=== PATIENT | male | born 1940 | race Caucasian/White ===

== ENCOUNTER → 2017-05-16 | Outpatient (CLI) | payer MEDICARE, OTHER ==
[~2017-05-16] MED LIST: FLUSAL2505 INH; LATA.005SO BOTHEYES; LEVO750 PO; Revlimid10 MG PO
== END ==
LOC: LAB 12:13 → LAB SHORT 12:13
DX: J47.9 Bronchiectasis, uncomplicated (principal)
CPT/HCPCS: 87070; 87205

== ENCOUNTER → 2017-10-30 | Outpatient (CLI) | payer MEDICARE, OTHER | END | disposition home or self-care (01) | LOC: LAB SHORT 11:34 → LAB 11:34 | DX: J47.9 Bronchiectasis, uncomplicated (principal) | CPT/HCPCS: 87070; 87205 ==

== ENCOUNTER → 2018-04-28 | Outpatient (CLI) | payer MEDICARE, OTHER ==
[~2018-04-28] MED LIST changes: +ASPI81CH PO; +Bactrim Ds Tab1 EACH PO; +ERGO400 PO; +UNITHROID PO
== END | disposition home or self-care (01) ==
LOC: LAB EV 19:03 → LAB SHORT 19:03
DX: R35.0 Frequency of micturition (principal)
CPT/HCPCS: 87086

== ENCOUNTER 2018-05-24 15:06 | Day surgery (SDC) | payer MEDICARE, OTHER ==
--- NOTE | 2018-05-24 20:22 | NUR ---
[id number] CONSENT/ORDERS NOTED AND ON CHART. PT VERBALIZES UNDERSTANDING OF PICC PLACEMENT. 2 ATTEMPTS FOR PLACEMENT, NOT ABLE TO THREAD GUIDEWIRE TO LUE. PT UP TO BRP AND AMBULATING IN HALLWAY, WHILE THIS RN DOWN TO [facility] UNIT TO OBTAIN PICC KIT. NONE AVAILABLE ON 2ND FLOOR. 2ND ATTEMPT DONE, MINIMAL BLOOD LOSS, GREEN SPIKES NOTED ON TLD. TAGADERM DRESSING AND NEW END CAP PLACED, SWAB CAP X1. STERILE TECHNIQUE MAINTAINED T/O PROCEDURE. PT CECILIO WELL.
[2018-05-25] MEDS ORDERED: SALM50IP INH (10:37)
[2018-05-25] MEDS ORDERED: Revlimid10 MG PO (10:37)
[2018-05-25] MEDS ORDERED: TAMS.4ER PO (10:38)
[2018-05-25] MEDS ORDERED: ALBU90OI61 INH (10:38)
== END 2018-05-24 22:55 | disposition home or self-care (01) ==
LOC: ATC 15:06
DX: C82.08 Follicular lymphoma grade I, lymph nodes of multiple sites (principal); D47.2 Monoclonal gammopathy; Z79.899 Other long term (current) drug therapy
CPT/HCPCS: 36569; C1751

== ENCOUNTER 2018-05-29 11:24 | Day surgery (SDC) | payer MEDICARE, OTHER ==
[~2018-05-29 11:24] MED LIST changes: +ALBU90OI61 INH; +SALM50IP INH; +TAMS.4ER PO
== END 2018-05-29 12:05 | disposition home or self-care (01) ==
LOC: ATC 11:24
DX: C82.08 Follicular lymphoma grade I, lymph nodes of multiple sites (principal); D47.2 Monoclonal gammopathy; I10 Essential (primary) hypertension; G47.30 Sleep apnea, unspecified; Z79.899 Other long term (current) drug therapy; Z79.82 Long term (current) use of aspirin
CPT/HCPCS: 99211

== ENCOUNTER 2018-06-07 09:11 | Day surgery (SDC) | payer MEDICARE, OTHER | END 2018-06-07 23:30 | disposition home or self-care (01) | LOC: ATC 09:11 | DX: C82.08 Follicular lymphoma grade I, lymph nodes of multiple sites (principal); D47.2 Monoclonal gammopathy; I10 Essential (primary) hypertension | CPT/HCPCS: 99211 ==

== ENCOUNTER 2018-06-12 10:37 | Day surgery (SDC) | payer MEDICARE, OTHER ==
[2018-06-16] MEDS ORDERED: Zofran8 MG PO (16:36)
[2018-06-16] MEDS ORDERED: DORZOPSO BOTHEYES (16:36)
== END 2018-06-12 10:50 | disposition home or self-care (01) ==
LOC: ATC 10:37
DX: C82.08 Follicular lymphoma grade I, lymph nodes of multiple sites (principal); D47.2 Monoclonal gammopathy; Z79.899 Other long term (current) drug therapy
CPT/HCPCS: 99211

== ENCOUNTER 2018-06-23 07:02 | Day surgery (SDC) | payer MEDICARE, OTHER ==
[~2018-06-23 07:02] MED LIST changes: +DORZOPSO BOTHEYES; +Zofran8 MG PO
--- NOTE | 2018-06-23 08:11 | NUR ---
Ambulatory in Day Surgery History, Chart, Medications and Allergies reviewed before start of procedure.Patient confirms NPO status and agrees with scheduled surgery. Lungs clear T/O to Auscultation. Patient reports completing Chlorhexadine shower X2 prior to admission to hospital.Surgical site prepped with 2% Chlorhexidine cloth wipe.
--- NOTE | 2018-06-23 10:34 | NUR ---
PATIENT GAVE PERMISSION FOR ME TO CARE FOR HIM TODAY 06/23/18. Discharge instructions reviewed with patient. Patient verbalizes understanding. Copy given to patient to take home. Dressing to procedure site clean, dry, intact with no visible drainage, swelling, erythema or bruising noted. Patient States Post-Procedure ride home has been arranged. Discharged via wheelchair to private car for ride home.
--- NOTE | 2018-06-23 10:45 | NUR ---
STUDENT RN ASSISTING IN PHASE 2 RECOVERY CARE, AGREE WITH HER CHARTING AND CARE
== END 2018-06-23 22:48 | disposition home or self-care (01) ==
LOC: ORSCMMR 07:02 → ORD 08:30 → ORSCMMR 08:30
PROVIDERS: Surgery
PROC: B5141ZA Fluoroscopy of Left Jugular Veins using Low Osmolar Contrast, Guidance (ICD-10-PCS; principal; 2018-06-23 08:30)
PROC: 05HN33Z Insertion of Infusion Device into Left Internal Jugular Vein, Percutaneous Approach (ICD-10-PCS; principal; 2018-06-23 08:30)
DX: C82.08 Follicular lymphoma grade I, lymph nodes of multiple sites (principal); I10 Essential (primary) hypertension; Z79.899 Other long term (current) drug therapy; Z79.82 Long term (current) use of aspirin
CPT/HCPCS: 77001; C1788; J0690; J1100; J1642; J2250; J2370; J2405; J2704; J3010; J7120

== ENCOUNTER → 2020-02-17 | Outpatient (CLI) | payer MEDICARE, BC | LOC: LAB SHORT 16:58 | DX: C83.30 Diffuse large B-cell lymphoma, unspecified site (principal) | CPT/HCPCS: 87493 ==

== ENCOUNTER 2020-03-29 09:50 | Day surgery (SDC) | payer MEDICARE, BC ==
[~2020-03-29] VITALS: Ht 180.3 cm; Wt 82.4 kg
[2020-03-29] MEDS ORDERED: BRIMONIDINE TART5 M1 (10:21)
[2020-03-29] MEDS ORDERED: POTASSIUM GLUCO99 M1 (10:22)
--- NOTE | 2020-03-29 10:28 | NUR ---
03/29/20 1028 JUSTIN POLLARD ONE ATTEMPT BY VIDA IN MISSED
--- NOTE | 2020-03-29 11:06 | NUR ---
03/29/20 1106 Andreina Camarillo SIMJOSSYICONE USED DURING PROCEDURE.
== END 2020-03-29 12:05 | disposition home or self-care (01) ==
LOC: ORSCSDS 09:50
PROVIDERS: Internal Medicine Gastroenterology
PROC: 0DBE8ZX Excision of Large Intestine, Via Natural or Artificial Opening Endoscopic, Diagnostic (ICD-10-PCS; principal; 2020-03-29 11:00)
PROC: 0DBH8ZX Excision of Cecum, Via Natural or Artificial Opening Endoscopic, Diagnostic (ICD-10-PCS; principal; 2020-03-29 11:00)
DX: R19.7 Diarrhea, unspecified (principal); D12.0 Benign neoplasm of cecum; C85.90 Non-Hodgkin lymphoma, unspecified, unspecified site; K57.30 Diverticulosis of large intestine without perforation or abscess without bleeding; K64.4 Residual hemorrhoidal skin tags; E03.9 Hypothyroidism, unspecified; Z79.899 Other long term (current) drug therapy
CPT/HCPCS: 88305; J2250; J2704; J7120

== ENCOUNTER → 2020-07-14 | Outpatient (CLI) | payer MEDICARE, BC ==
[~2020-07-14] MED LIST changes: +BRIMONIDINE TART5 M1; +LEVOFLOXACIN PO; +POTASSIUM GLUCO99 M1; +SUCRALFATE1 G7 PO
== END | disposition home or self-care (01) ==
LOC: LAB SHORT 11:40 → LAB 11:40
DX: D23.39 Other benign neoplasm of skin of other parts of face (principal); D22.39 Melanocytic nevi of other parts of face; L57.0 Actinic keratosis
CPT/HCPCS: 88305

== ENCOUNTER → 2020-08-24 | Outpatient (CLI) | payer MEDICARE, BC ==
[~2020-08-24] MED LIST changes: -LEVOFLOXACIN PO; -SUCRALFATE1 G7 PO
== END ==
LOC: LAB 15:01 → LAB SHORT 15:01
DX: L57.0 Actinic keratosis (principal)
CPT/HCPCS: 88305

== ENCOUNTER → 2020-08-31 | Outpatient (CLI) | payer MEDICARE, BC | END | disposition home or self-care (01) | LOC: LAB 11:20 | DX: C85.90 Non-Hodgkin lymphoma, unspecified, unspecified site (principal) ==

== ENCOUNTER 2020-09-01 13:17 | Day surgery (SDC) | payer MEDICARE, BC ==
[2020-09-01] MEDS ORDERED: SUCRALFATE1 G7 PO (16:42)
[2020-09-01] MEDS ORDERED: LEVOFLOXACIN PO (16:43)
== END 2020-09-01 17:54 | disposition home or self-care (01) ==
LOC: LAB 13:17 → EDSTATUS 13:17 → ATC 13:17
DX: C83.38 Diffuse large B-cell lymphoma, lymph nodes of multiple sites (principal); D69.59 Other secondary thrombocytopenia; Z85.46 Personal history of malignant neoplasm of prostate; I87.309 Chronic venous hypertension (idiopathic) without complications of unspecified lower extremity; G47.30 Sleep apnea, unspecified; Z92.25 Personal history of immunosuppression therapy
CPT/HCPCS: 36415; 36430; 86900; 86901; J1642; J7050; P9035

== ENCOUNTER 2020-11-07 07:24 | Emergency (ER) | payer MEDICARE, BC ==
[~2020-11-07] VITALS: Ht 177.8 cm; Wt 70.3 kg
[~2020-11-07 07:24] MED LIST changes: -BRIMONIDINE TART5 M1; +BRIMONIDINE TART5 M1 BOTHEYES; +LEVOTHYROXINE PO; +SUCRALFATE1 G7 PO; -UNITHROID PO
[2020-11-07 08:52] LABS: Hematocrit 31.3 % (37.0-53.0); Hemoglobin 10.1 g/dL (13.5-17.5); Mean Corpuscular HGB 31.6 pg (26.0-34.0); Mean Corpuscular HGB Conc 32.3 g/dL (31.5-36.5); Mean Corpuscular Volume 98 fL (80-100); Mean Platelet Volume 10.7 fL (9.1-12.4); RDW Coefficient Variation 20.2 % (11.7-14.2); RDW Standard Deviation 73.5 fL (35.1-46.3); White Blood Cell Count 9.26 K/mm3 (4.00-11.30)
[2020-11-07 09:06] LABS: Albumin, Blood 3.1 g/dL (3.4-5.0); Albumin/Globulin Ratio 1.1 (0.8-1.8); Bilirubin, Total 0.9 mg/dL (0.1-1.0); Bun/Creatinine Ratio 23.3 (12.0-20.0); Calcium, Blood 8.7 mg/dL (8.5-10.1); Creatinine, Blood 1.33 mg/dL (0.60-1.20); Globulin, Blood 2.7 g/dL (2.2-4.0); Potassium, Blood 3.9 mmol/L (3.5-5.5); Total Protein, Blood 5.8 g/dL (6.4-8.2); Troponin I 0.032 ng/mL (0.000-0.040)
[2020-11-07 09:09] LABS: Platelet Count 37 K/mm3 (150-400)
[2020-11-07 09:21] LABS: BAND PERCENT MAN 17 % (0-8); BASOPHILS PERCENT MAN 0 % (0-2); EOSINOPHILS PERCENT MAN 0 % (0-6); LYMPHOCYTES ABSOLUTE MAN 0.18 K/mm3 (0.84-5.20); LYMPHOCYTES PERCENT MAN 2 % (21-46); METAMYELOCYTE ABSOLUTE MAN 0.27 K/mm3 (0.00-0.00); METAMYELOCYTE PERCENT MAN 3 % (0-0); MONOCYTES ABSOLUTE MAN 0.46 K/mm3 (0.16-1.47); MONOCYTES PERCENT MAN 5 % (4-13); NEUTROPHILS ABSOLUTE MAN 8.33 K/mm3 (1.96-9.15); SEG NEUTROPHILS PERCENT MAN 73 % (41-73); TOTAL CELLS COUNTED 100
[2020-11-07 09:55] LABS: SARS-Cov-2 (COVID-19) PCR, MMC NEGATIVE (NEGATIVE)
[2020-11-07] MEDS ORDERED: Levaquin750 MG PO (10:40)
[2020-11-07 12:27] LABS: Source, Urine Clean Catch
[2020-11-07 12:31] LABS: Bilirubin, Urine Neg (Neg); Blood, Urine 5+ (Neg); Glucose Qualitative, Urine Neg (Neg); Ketones, Urine Neg (Neg); Leukocyte Esterase, Urine Neg (Neg); Nitrite, Urine Neg (Neg); Protein, Urine 3+ (Neg); Specific Gravity, Urine 1.015 (1.003-1.022); Urobilinogen, Urine NORM (Normal)
[2020-11-07 12:40] LABS: Appearance, Urine Clear (Clear); Color, Urine Yellow (P-Yellow)
[2020-11-07 12:41] LABS: Red Blood Cells, Urine 0-2 /hpf (0-2); White Blood Cells, Urine 0-2 /hpf (0-5)
[2020-11-07] MEDS ORDERED: Cortef20 MG PO (12:41)
[2020-11-07] MEDS ORDERED: LEVSOD75 PO (12:42)
[2020-11-07 12:43] LABS: Bacteria Not Seen /hpf; Squamous Epithelial Cells Rare /hpf (Few)
[2020-11-07] MEDS ORDERED: ACYCLOVIR400 MG PO (12:43)
[2020-11-07] MEDS ORDERED: SULFAMETHOXAZO1 EAC1 PO (12:44)
[2020-11-07] MEDS ORDERED: DEXA4 PO (12:45)
[2020-11-07] MEDS ORDERED: ESOMEPRAZOLE MA40 MG PO (12:46)
== END 2020-11-07 14:18 | disposition home or self-care (01) ==
LOC: ER 07:24
PROVIDERS: Physician Assistant
DX: J44.0 Chronic obstructive pulmonary disease with (acute) lower respiratory infection (principal); J18.9 Pneumonia, unspecified organism; E86.0 Dehydration; Z20.822 Contact with and (suspected) exposure to COVID-19; Z88.8 Allergy status to other drugs, medicaments and biological substances; Z79.899 Other long term (current) drug therapy
CPT/HCPCS: 36415; 71045; 80053; 81001; 83605; 84484; 85025; 93005; 93010; 96365; 99285-25; J0692; J7030; U0004

== ENCOUNTER 2021-01-10 22:13 | Inpatient (IN) | payer MEDICARE, BC ==
[~2021-01-10] VITALS: Ht 177.8 cm; Wt 90.7 kg
[~2021-01-10 22:13] MED LIST changes: +ACYCLOVIR400 MG PO; +Cortef20 MG PO; +DEXA4 PO; +ESOMEPRAZOLE MA40 MG PO; +LEVSOD75 PO; +Levaquin750 MG PO; +SULFAMETHOXAZO1 EAC1 PO
[2021-01-10] MEDS ORDERED: ONDA4 PO (22:56)
[2021-01-10] MEDS ORDERED: SUCR1 PO (22:57)
[2021-01-10 23:29] LABS: Hematocrit 30.8 % (37.0-53.0); Hemoglobin 10.1 g/dL (13.5-17.5); Mean Corpuscular HGB 33.1 pg (26.0-34.0); Mean Corpuscular HGB Conc 32.8 g/dL (31.5-36.5); Mean Corpuscular Volume 101 fL (80-100); Mean Platelet Volume 9.7 fL (9.1-12.4); Platelet Count 62 K/mm3 (150-400); RDW Coefficient Variation 18.3 % (11.7-14.2); RDW Standard Deviation 68.1 fL (35.1-46.3); Red Blood Cell Count 3.05 M/mm3 (4.30-5.90)
[2021-01-10 23:59] LABS: Source, Urine Catheter
[2021-01-11 00:06] LABS: Albumin/Globulin Ratio 1.2 (0.8-1.8); Bilirubin, Total 0.5 mg/dL (0.1-1.0); Bun/Creatinine Ratio 18.3 (12.0-20.0); Calcium, Blood 8.7 mg/dL (8.5-10.1); Creatinine, Blood 1.2 mg/dL (0.60-1.20); Globulin, Blood 2.6 g/dL (2.2-4.0); Potassium, Blood 3.7 mmol/L (3.5-5.5); Total Protein, Blood 5.6 g/dL (6.4-8.2); Troponin I 0.495 ng/mL (0.000-0.040)
[2021-01-11 00:42] LABS: Appearance, Urine Clear (Clear); Bilirubin, Urine Neg (Neg); Blood, Urine 1+ (Neg); Color, Urine Yellow (P-Yellow); Glucose Qualitative, Urine Neg (Neg); Ketones, Urine Neg (Neg); Leukocyte Esterase, Urine Neg (Neg); Nitrite, Urine Neg (Neg); Protein, Urine 3+ (Neg); Urobilinogen, Urine NORM (Normal)
[2021-01-11 00:58] LABS: BAND PERCENT MAN 3 % (0-8); BASOPHILS PERCENT MAN 0 % (0-2); EOSINOPHILS PERCENT MAN 0 % (0-6); LYMPHOCYTES ABSOLUTE MAN 0.15 K/mm3 (0.84-5.20); LYMPHOCYTES PERCENT MAN 7 % (21-46); METAMYELOCYTE ABSOLUTE MAN 0.02 K/mm3 (0.00-0.00); METAMYELOCYTE PERCENT MAN 1 % (0-0); MONOCYTES ABSOLUTE MAN 0.22 K/mm3 (0.16-1.47); MONOCYTES PERCENT MAN 10 % (4-13); SEG NEUTROPHILS PERCENT MAN 79 % (41-73); TOTAL CELLS COUNTED 100
[2021-01-11 01:23] LABS: Bacteria Rare /hpf; Squamous Epithelial Cells Rare /hpf (Few); White Blood Cells, Urine 0-2 /hpf (0-5)
[2021-01-11 04:13] LABS: White Blood Cell Count 1.85 K/mm3 (4.00-11.30)
[2021-01-11 04:14] LABS: Hematocrit 27.6 % (37.0-53.0); Hemoglobin 8.9 g/dL (13.5-17.5); Mean Corpuscular HGB 32.7 pg (26.0-34.0); Mean Corpuscular HGB Conc 32.2 g/dL (31.5-36.5); Mean Corpuscular Volume 102 fL (80-100); Mean Platelet Volume 9.8 fL (9.1-12.4); Platelet Count 57 K/mm3 (150-400); RDW Coefficient Variation 18.5 % (11.7-14.2); Red Blood Cell Count 2.72 M/mm3 (4.30-5.90)
[2021-01-11 04:28] LABS: Calcium, Blood 7.8 mg/dL (8.5-10.1); Creatinine, Blood 1.22 mg/dL (0.60-1.20); Potassium, Blood 3.3 mmol/L (3.5-5.5)
[2021-01-11 06:45] LABS: BAND PERCENT MAN 3 % (0-8); BASOPHILS PERCENT MAN 0 % (0-2); EOSINOPHILS ABSOLUTE MAN 0.03 K/mm3 (0.00-0.68); EOSINOPHILS PERCENT MAN 2 % (0-6); LYMPHOCYTES ABSOLUTE MAN 0.24 K/mm3 (0.84-5.20); LYMPHOCYTES PERCENT MAN 13 % (21-46); MONOCYTES ABSOLUTE MAN 0.12 K/mm3 (0.16-1.47); MONOCYTES PERCENT MAN 7 % (4-13); NEUTROPHILS ABSOLUTE MAN 1.44 K/mm3 (1.96-9.15); SEG NEUTROPHILS PERCENT MAN 75 % (41-73); TOTAL CELLS COUNTED 100
--- NOTE | 2021-01-11 07:18 | NUR ---
HERMELINDA SEEMED TO HAVE IMPROVED FROM THE ER TO OUR [facility] FLOOR. WHEN HE CAME IN HE WAS ABLE TO ANSWER ALL ADMISSION QUESTIONS. HE WAS ADMINISTERED HIS NEW ORDERED MEDS. HE STOOD UP TO USE THE URINAL, BED ALARM WAS PUT ON SINCE HE SAYS USES A WALKER AT HOME AND HAD SUFFERED A FALL IN HIS BACKYARD A FEW WEEKS AGO
[2021-01-11 07:49] LABS: Hematocrit 28.1 % (37.0-53.0); Mean Corpuscular HGB 32.7 pg (26.0-34.0); Mean Corpuscular Volume 102 fL (80-100); Mean Platelet Volume 9.6 fL (9.1-12.4); Platelet Count 56 K/mm3 (150-400); RDW Coefficient Variation 18.6 % (11.7-14.2); RDW Standard Deviation 68.9 fL (35.1-46.3); Red Blood Cell Count 2.75 M/mm3 (4.30-5.90); White Blood Cell Count 1.89 K/mm3 (4.00-11.30)
[2021-01-11 08:07] LABS: BASOPHILS PERCENT MAN 0 % (0-2); EOSINOPHILS ABSOLUTE MAN 0.01 K/mm3 (0.00-0.68); EOSINOPHILS PERCENT MAN 1 % (0-6); LYMPHOCYTES ABSOLUTE MAN 0.07 K/mm3 (0.84-5.20); LYMPHOCYTES PERCENT MAN 4 % (21-46); MONOCYTES ABSOLUTE MAN 0.13 K/mm3 (0.16-1.47); MONOCYTES PERCENT MAN 7 % (4-13); MYELOCYTE ABSOLUTE MAN 0.01 K/mm3 (0.00-0.00); MYELOCYTE PERCENT MAN 1 % (0-0); NEUTROPHILS ABSOLUTE MAN 1.64 K/mm3 (1.96-9.15); SEG NEUTROPHILS PERCENT MAN 87 % (41-73); TOTAL CELLS COUNTED 100
--- NOTE | 2021-01-11 18:18 | NUR ---
SHIFT SUMMARY PATIENT DENIES PAIN, NAUSEA, AND SHORTNESS OF BREATH. PATIENT IS A SBA TO THE [facility] – [place], [place]. PATIENT IS EATING AND DRINKING WELL. PATIENT HAD VISIT IN AFTERNOON. PATIENT RECEIVED BOLUS THIS AFTERNOON. AFTER THAT BP WAS CHECKED AND IT HAD DROPPED TO 102/50. NOTIFIED AND NEW ORDERS FOR NS AT 150MLS/HR FOR 2 BAGS ORDERED. RECHECK AFTER 15 MINUTES WAS 98/60. DR. JUDGE NOTIFIED, TOLD TO RECHECK IN HOUR. TROPONIN CAME BACK AT A CRITICAL VALUE OF 0.564. DR. JUDGE NOTIFIED AND NEW ORDERS FOR EKG AND REPEAT TROPONIN. REPEAT BP WAS 100/60. NO NEW ORDERS. PATIENT DENIES CHEST PAIN AND STATES HE FEELS "GREAT". PATIENT DENIES DIZZINESS.
[2021-01-12 06:15] LABS: Bun/Creatinine Ratio 17.6 (12.0-20.0); Calcium, Blood 7.3 mg/dL (8.5-10.1); Creatinine, Blood 1.42 mg/dL (0.60-1.20); Potassium, Blood 4.3 mmol/L (3.5-5.5)
[2021-01-12 07:00] LABS: Hematocrit 23.9 % (37.0-53.0); Hemoglobin 7.6 g/dL (13.5-17.5); Mean Corpuscular HGB 33.2 pg (26.0-34.0); Mean Corpuscular HGB Conc 31.8 g/dL (31.5-36.5); Mean Corpuscular Volume 104 fL (80-100); Mean Platelet Volume 11.3 fL (9.1-12.4); RDW Coefficient Variation 18.9 % (11.7-14.2); RDW Standard Deviation 72.4 fL (35.1-46.3); Red Blood Cell Count 2.29 M/mm3 (4.30-5.90); White Blood Cell Count 1.49 K/mm3 (4.00-11.30)
--- NOTE | 2021-01-12 07:16 | NUR ---
PT SLEPT THROUGH THE NIGHT, WAS NOTIFIED BY TELE FOR 6 BEAT RUN OF [place]ACH. CHARGE AWARE. PT MADE NO COMPLAINTS OF CHEST PAIN OR SOB. PT REMAINS HYPOTENSIVE AND HAS NS INFUSING, IV WNL. PT REMAINS ORIENTED X4 AND A 1 ASSIST TO BSC. WILL CONTINUE TO MONITOR.
[2021-01-12 08:20] LABS: Platelet Count 44 K/mm3 (150-400)
[2021-01-12 10:52] LABS: BASOPHILS PERCENT MAN 0 % (0-2); EOSINOPHILS ABSOLUTE MAN 0.02 K/mm3 (0.00-0.68); EOSINOPHILS PERCENT MAN 2 % (0-6); LYMPHOCYTES ABSOLUTE MAN 0.05 K/mm3 (0.84-5.20); LYMPHOCYTES PERCENT MAN 4 % (21-46); MONOCYTES ABSOLUTE MAN 0.05 K/mm3 (0.16-1.47); MONOCYTES PERCENT MAN 4 % (4-13); NEUTROPHILS ABSOLUTE MAN 1.34 K/mm3 (1.96-9.15); SEG NEUTROPHILS PERCENT MAN 90 % (41-73); TOTAL CELLS COUNTED 50
--- NOTE | 2021-01-12 18:01 | NUR ---
SHIFT SUMMARY PATIENT DENIES PAIN, NAUSEA, AND SHORTNESS OF BREATH. PATIENT IS A SBA TO THE [facility]. PATIENT HAD A CRITICAL PLATELET LEVEL OF [address] JUDGE NOTIFIED. LOVENOX INJECTION HELD. PATIENT VISITED IN AFTERNOON. PATIENT HAVING LOOSE STOOLS. PATIENT IS EATING AND DRINKING WELL. PATIENT IS PLEASANT AND COOPERATIVE WITH CARE. PT WORKED WITH PATIENT TODAY AND DECIDED TO DISCHARGE HIM FROM PHYSICAL THERAPY. DOCTOR MENTIONED PATIENT IS A POSSIBLE DISCHARGE TOMORROW.
[2021-01-13 05:20] LABS: Hemoglobin 7.4 g/dL (13.5-17.5); Mean Corpuscular HGB Conc 32.2 g/dL (31.5-36.5); Mean Corpuscular Volume 103 fL (80-100); RDW Coefficient Variation 18.7 % (11.7-14.2); RDW Standard Deviation 69.4 fL (35.1-46.3); Red Blood Cell Count 2.24 M/mm3 (4.30-5.90); White Blood Cell Count 3.65 K/mm3 (4.00-11.30)
[2021-01-13 05:29] LABS: Platelet Count 44 K/mm3 (150-400)
--- NOTE | 2021-01-13 05:49 | NUR ---
HERMELINDA HAD AN UNEVENTFUL NIGHT,RECEIVED HIS MED, ROUTINELY USED THE BEDSIDE COMMODE. HE IS COOPERATIVE, HIS PLATELETS ARE STILL CRITICAL NEW ORDER OF FILGRASTIM IS STILL ACTIVE. CONTINUE TO MONITOR
[2021-01-13 05:51] LABS: BAND PERCENT MAN 8 % (0-8); BASOPHILS PERCENT MAN 0 % (0-2); EOSINOPHILS PERCENT MAN 0 % (0-6); LYMPHOCYTES ABSOLUTE MAN 0.07 K/mm3 (0.84-5.20); LYMPHOCYTES PERCENT MAN 2 % (21-46); METAMYELOCYTE ABSOLUTE MAN 0.03 K/mm3 (0.00-0.00); METAMYELOCYTE PERCENT MAN 1 % (0-0); MONOCYTES ABSOLUTE MAN 0.32 K/mm3 (0.16-1.47); MONOCYTES PERCENT MAN 9 % (4-13); MYELOCYTE ABSOLUTE MAN 0.03 K/mm3 (0.00-0.00); MYELOCYTE PERCENT MAN 1 % (0-0); NEUTROPHILS ABSOLUTE MAN 3.17 K/mm3 (1.96-9.15); SEG NEUTROPHILS PERCENT MAN 79 % (41-73); TOTAL CELLS COUNTED 100
[2021-01-13 05:57] LABS: Albumin, Blood 2.2 g/dL (3.4-5.0); Anion Gap 8 mmol/L (6-16); Blood Urea Nitrogen 22 mg/dL (8-24); Bun/Creatinine Ratio 15.5 (12.0-20.0); CO2, Blood 21 mmol/L (21-32); Calcium, Blood 7.6 mg/dL (8.5-10.1); Chloride, Blood 113 mmol/L (98-108); Creatinine, Blood 1.42 mg/dL (0.60-1.20); Glomerular Filtration Rate 48 (60-); Glucose, Blood 98 mg/dL (70-99); Phosphorus, Blood 2.6 mg/dL (2.5-4.9); Potassium, Blood 3.8 mmol/L (3.5-5.5); Sodium, Blood 142 mmol/L (136-145)
[2021-01-13] MEDS ORDERED: AZIT250 PO (15:46)
[2021-01-13] MEDS ORDERED: CEFP200 PO (15:46)
--- NOTE | 2021-01-13 16:45 | NUR ---
CAMILO DEACCESSED AFTER HEPARIN PACKED. NO TELE. REVIEWED DISCHARGE WITH PT AND SPOUSE. VERBALIZED UNDERSTANDING MEDS AND INST. WHEELED TO DOOR AT 1642 BY MIN.
== END 2021-01-13 17:02 | disposition home health service (06) | DRG 871 ==
LOC: ER 22:13 → MEDS 01-11 02:53
PROVIDERS: Family Medicine; Student in an Organized Health Care Education/Training Program; ADMIT Internal Medicine
DX: B37.7 Candidal sepsis (principal); G92.8 Other toxic encephalopathy; J44.0 Chronic obstructive pulmonary disease with (acute) lower respiratory infection; E87.2 Acidosis; C83.30 Diffuse large B-cell lymphoma, unspecified site; B37.1 Pulmonary candidiasis; E03.9 Hypothyroidism, unspecified; E87.6 Hypokalemia; N40.0 Benign prostatic hyperplasia without lower urinary tract symptoms; B35.1 Tinea unguium; D69.6 Thrombocytopenia, unspecified; R65.20 Severe sepsis without septic shock; Z23 Encounter for immunization; Z88.8 Allergy status to other drugs, medicaments and biological substances; Z95.828 Presence of other vascular implants and grafts; Z98.890 Other specified postprocedural states; Z92.21 Personal history of antineoplastic chemotherapy; Z79.899 Other long term (current) drug therapy; Z85.46 Personal history of malignant neoplasm of prostate
CPT/HCPCS: 36415; 71045; 71260; 80048; 80053; 80069; 81001; 83605; 84145; 84484; 85007; 85025; 85027; 87040; 87070; 87205; 90686; 93005; 93010; 96365; 96367; 97162; 97165; 97530; 97535; 99285-25; A9270; G0008; J0696; J1642; J1650; J2543; J3370; J7030; J7040; J7120; Q5110; Q9967

== ENCOUNTER 2021-01-25 14:02 | Inpatient (IN) | payer MEDICARE, BC ==
[~2021-01-25] VITALS: Ht 175.3 cm; Wt 72.2 kg
[~2021-01-25 14:02] MED LIST changes: +AZIT250 PO; +CEFP200 PO; +ONDA4 PO; +SUCR1 PO
[2021-01-25 15:17] LABS: Hematocrit 31.1 % (37.0-53.0); Hemoglobin 10.1 g/dL (13.5-17.5); Mean Corpuscular HGB 33.8 pg (26.0-34.0); Mean Corpuscular HGB Conc 32.5 g/dL (31.5-36.5); Mean Corpuscular Volume 104 fL (80-100); Mean Platelet Volume 11.7 fL (9.1-12.4); RDW Coefficient Variation 18.8 % (11.7-14.2); RDW Standard Deviation 71.5 fL (35.1-46.3); Red Blood Cell Count 2.99 M/mm3 (4.30-5.90); White Blood Cell Count 2.33 K/mm3 (4.00-11.30)
[2021-01-25 15:21] LABS: Platelet Count 46 K/mm3 (150-400)
[2021-01-25 15:38] LABS: BAND PERCENT MAN 1 % (0-8); BASOPHILS PERCENT MAN 0 % (0-2); EOSINOPHILS ABSOLUTE MAN 0.02 K/mm3 (0.00-0.68); EOSINOPHILS PERCENT MAN 1 % (0-6); LYMPHOCYTES ABSOLUTE MAN 0.06 K/mm3 (0.84-5.20); LYMPHOCYTES PERCENT MAN 3 % (21-46); MONOCYTES PERCENT MAN 9 % (4-13); NEUTROPHILS ABSOLUTE MAN 2.02 K/mm3 (1.96-9.15); SEG NEUTROPHILS PERCENT MAN 86 % (41-73); TOTAL CELLS COUNTED 100
[2021-01-25 15:39] LABS: Anion Gap 6 mmol/L (6-16); Blood Urea Nitrogen 20 mg/dL (8-24); Bun/Creatinine Ratio 19.4 (12.0-20.0); CO2, Blood 25 mmol/L (21-32); Calcium, Blood 8.5 mg/dL (8.5-10.1); Chloride, Blood 111 mmol/L (98-108); Creatinine, Blood 1.03 mg/dL (0.60-1.20); Glomerular Filtration Rate >60 (60-); Glucose, Blood 82 mg/dL (70-99); Potassium, Blood 3.9 mmol/L (3.5-5.5); Sodium, Blood 142 mmol/L (136-145)
[2021-01-25 15:40] LABS: Alanine Aminotransfer (ALT/SGP 31 U/L (12-78); Alk Phos 110 U/L (50-136); Aspartate Aminotrans (AST/SGOT 53 U/L (12-37); Bilirubin, Total 0.8 mg/dL (0.1-1.0); Globulin, Blood 2.9 g/dL (2.2-4.0); Total Protein, Blood 5.9 g/dL (6.4-8.2)
[2021-01-25 16:00] LABS: Influenza A, PCR NEGATIVE (NEGATIVE); Influenza B, PCR NEGATIVE (NEGATIVE); Resp Syncytial Virus, PCR NEGATIVE (NEGATIVE); SARS-Cov-2 (COVID-19) PCR, MMC NEGATIVE (NEGATIVE)
[2021-01-25 17:55] LABS: Calcium, Ionized (POC) 1.15 mmol/L (1.10-1.46); Chloride (POC) 109 mmol/L (98-108); Glucose (ISTAT POC) 81 mg/dL (70-99); Hemoglobin (POC) 11.6 g/dL (13.5-17.5); Potassium (POC) 3.3 mmol/L (3.5-5.5); Sodium (POC) 141 mmol/L (135-148); Total CO2 (POC) 19 mmol/L (21-32)
[2021-01-25 20:10] LABS: Source, Urine Clean Catch
[2021-01-25 20:23] LABS: Appearance, Urine Clear (Clear); Bilirubin, Urine Neg (Neg); Blood, Urine 1+ (Neg); Color, Urine Yellow (P-Yellow); Glucose Qualitative, Urine Neg (Neg); Ketones, Urine Neg (Neg); Leukocyte Esterase, Urine 1+ (Neg); Nitrite, Urine Neg (Neg); Protein, Urine 3+ (Neg); Specific Gravity, Urine 1.015 (1.003-1.022); Urobilinogen, Urine NORM (Normal)
[2021-01-25 20:43] LABS: Bacteria Few /hpf; Hyaline Casts 0-2 /lpf (0-2); Red Blood Cells, Urine 0-2 /hpf (0-2); Squamous Epithelial Cells Few /hpf (Few)
[2021-01-25] MEDS ORDERED: MOXIFLOXACIN PO (23:48)
[2021-01-25] MEDS ORDERED: LATANOPROST2.5 M3 (23:49)
[2021-01-25] MEDS ORDERED: DORZOLAMIDE 2% ×2 (23:49→23:50)
[2021-01-26 01:50] LABS: C DIFFICILE DNA NEGATIVE (Negative)
--- NOTE | 2021-01-26 05:33 | NUR ---
RECEIVED PATIENT TO UNIT ABOUT 0420. ALERT AND OREINTED X'S 4, CAN BE FORGETFUL. NO ACUTE DISTRESS NOTED, RESPIRATIONS EVEN AND UNLABORED. I ASSIST FOR TRANSFERS. STAGE 1 TO SACRUM, MEPILEX BORDER IN PLACE, DISCOLORATION TO BLE'S WITH SCATTERED BRUISING TO BILATERAL ARMS. CURRENTLY RESTING PEACEFULLY IN BED. ORIENTED PATIENT TO ROOM, SAFETY MAINTAINED, CALL RENNER IN REACH.
[2021-01-26 06:34] LABS: BASOPHILS PERCENT AUTO 0 % (0-2); EOSINOPHILS ABSOLUTE AUTO 0.02 K/mm3 (0.00-0.68); EOSINOPHILS PERCENT AUTO 1 % (0-6); Hematocrit 26.8 % (37.0-53.0); Hemoglobin 8.6 g/dL (13.5-17.5); IMMATURE GRAN ABSOLUTE AUTO 0.05 K/mm3 (0.00-0.10); IMMATURE GRAN PERCENT AUTO 3 % (0-1); LYMPHOCYTES ABSOLUTE AUTO 0.09 K/mm3 (0.84-5.20); LYMPHOCYTES PERCENT AUTO 6 % (21-46); MONOCYTES ABSOLUTE AUTO 0.15 K/mm3 (0.16-1.47); MONOCYTES PERCENT AUTO 10 % (4-13); Mean Corpuscular HGB 33.7 pg (26.0-34.0); Mean Corpuscular HGB Conc 32.1 g/dL (31.5-36.5); Mean Corpuscular Volume 105 fL (80-100); Mean Platelet Volume 11.3 fL (9.1-12.4); NEUTROPHILS ABSOLUTE AUTO 1.14 K/mm3 (1.96-9.15); NEUTROPHILS PERCENT AUTO 79 % (41-73); RDW Coefficient Variation 18.9 % (11.7-14.2); RDW Standard Deviation 71.6 fL (35.1-46.3); Red Blood Cell Count 2.55 M/mm3 (4.30-5.90); White Blood Cell Count 1.45 K/mm3 (4.00-11.30)
[2021-01-26 07:22] LABS: Platelet Count 36 K/mm3 (150-400)
[2021-01-26 07:40] LABS: Alanine Aminotransfer (ALT/SGP 24 U/L (12-78); Albumin, Blood 2.4 g/dL (3.4-5.0); Albumin/Globulin Ratio 1.2 (0.8-1.8); Alk Phos 104 U/L (50-136); Anion Gap 8 mmol/L (6-16); Aspartate Aminotrans (AST/SGOT 31 U/L (12-37); Bilirubin, Total 0.6 mg/dL (0.1-1.0); Blood Urea Nitrogen 19 mg/dL (8-24); Bun/Creatinine Ratio 18.4 (12.0-20.0); CO2, Blood 23 mmol/L (21-32); Calcium, Blood 7.7 mg/dL (8.5-10.1); Chloride, Blood 114 mmol/L (98-108); Creatinine, Blood 1.03 mg/dL (0.60-1.20); Glomerular Filtration Rate >60 (60-); Glucose, Blood 90 mg/dL (70-99); Potassium, Blood 3.4 mmol/L (3.5-5.5); Sodium, Blood 145 mmol/L (136-145); Total Protein, Blood 4.4 g/dL (6.4-8.2)
--- NOTE | 2021-01-26 10:47 | NUR ---
Pt. was awake. I have known the pt. and his family for over 30 yrs, but it took some time and effort for him to make that connection. The pt. clearly struggled to form words, so I led a conversation to allow him to answer with shorter responses. Over time the pt. memories of me improved. The pt. struggled with a layer of guilt for not being able to episcopalian as he had been accustomed. The pt. made reference to a specific scripture passage (Psalm 103), I offered to read it to him, and he joyfully accepted the offer. Explored issues of irene and belief, but again he struggled to form words. At pt. request, I prayed with him, and will check on him again.
--- NOTE | 2021-01-26 18:29 | NUR ---
PATIENT CURRENTLY LYING IN BED WITH EYES CLOSED. NO SIGNS OR SYMPTOMS ACUTE DISTRESS NOTED. BROUGHT HEARING AMPLIFIER HEADPHONES IN AND PATIENT IS ABLE TO HEAR MUCH BETTER WITH THAT. PATIENT HAS NEEDED SBA ASSIST WITH TRANSFERS TO BSC. NO COMPLAINTS OF PAIN VOICED. NOTIFED DR BRANCH WITH ONCOLOGY OF CONSULT. DR DESHPANDE IS ON VACATION. CALL LIGHT AND WATER IN EASY REACH. ABLE TO MAKE NEEDS AND WANTS KNOWN. WILL MONITOR.
--- NOTE | 2021-01-27 06:19 | NUR ---
ALERT, LAC COURTE OREILLES. SLEPT WELL THROUGH NIGHT. INCONTINENT EPISODE OF BOWEL. DENIES PAIN OR DISCOMFORT. TELEMETRY S/R. 1 ASSIST FOR TRANSFERS TO BSC. ENCOURAGED PATIENT TO REPOSITION THROUGH NIGHT. SAFETY MAINTAINED. CALL RENNER IN REACH.
--- NOTE | 2021-01-27 14:59 | NUR ---
Pt. was sitting up in bed and alert. Seemed much more alert than previous day. Also met with spouse who had also been headed in for a visit. Pt. showed signs of frustration for not remembering me, and was apologetic. At. pt. request provided inspirational reading and teaching. Through theraputic listening identified some concerns regarding the re-writing of his will. Pt. responded with better comprehension, reduced stress, and engagement. Prayed with Pt. and spouse. Will continue to monitor his spiritual progress or regress.
--- NOTE | 2021-01-27 17:14 | NUR ---
PT REMAINS A&OX4- INTERMITTENT FORGETFULNESS. VSS. NO C/O PAIN. AUO. NO BM. TOELRATING CURRENT DIET. WORKED WITH PT AND OT- SEE NOTES. ABX ADJUSTED. ENCOURAGED FREQUENT REPOSITIONING TO PREVENT PRESSURE ULCERS. FREQUENT ROUNDS TO ENSURE PT SAFETY. PT IN NO APPARENT DISTRESS AT THIS TIME. WILL CONTINUE TO MONITOR UNTIL TRANSFER OF CARE TO ONCOMING RN.
--- NOTE | 2021-01-28 06:29 | NUR ---
ALERT AND ORIENTED, ABLE TO VERBALIZE NEEDS WITHOUT DIFFICULTY. BILATERAL LUNG SOUNDS DIMINISHED, ON RA, DENIES SOB. TURNED AND REPOSITIONED SELF THROGH NIGHT. DRESSING INATCT TO SACRAL AREA. SLEPT WELL THROUGH THROUGH NIGHT, SAFETY MAINTAINED.
[2021-01-28 09:31] LABS: Hematocrit 24.1 % (37.0-53.0); Hemoglobin 7.8 g/dL (13.5-17.5); Mean Corpuscular HGB 33.5 pg (26.0-34.0); Mean Corpuscular HGB Conc 32.4 g/dL (31.5-36.5); Mean Corpuscular Volume 103 fL (80-100); Mean Platelet Volume 10.5 fL (9.1-12.4); RDW Coefficient Variation 18.5 % (11.7-14.2); RDW Standard Deviation 69.6 fL (35.1-46.3); Red Blood Cell Count 2.33 M/mm3 (4.30-5.90)
[2021-01-28 09:39] LABS: Albumin, Blood 2.5 g/dL (3.4-5.0); Anion Gap 7 mmol/L (6-16); Blood Urea Nitrogen 25 mg/dL (8-24); Bun/Creatinine Ratio 18.1 (12.0-20.0); CO2, Blood 24 mmol/L (21-32); Calcium, Blood 7.9 mg/dL (8.5-10.1); Chloride, Blood 112 mmol/L (98-108); Creatinine, Blood 1.38 mg/dL (0.60-1.20); Glomerular Filtration Rate 49 (60-); Glucose, Blood 106 mg/dL (70-99); Phosphorus, Blood 2.4 mg/dL (2.5-4.9); Potassium, Blood 3.4 mmol/L (3.5-5.5); Sodium, Blood 143 mmol/L (136-145)
[2021-01-28 09:59] LABS: White Blood Cell Count 0.94 K/mm3 (4.00-11.30)
[2021-01-28 10:01] LABS: Platelet Count 31 K/mm3 (150-400)
[2021-01-28 10:08] LABS: BASOPHILS PERCENT MAN 0 % (0-2); EOSINOPHILS PERCENT MAN 0 % (0-6); LYMPHOCYTES ABSOLUTE MAN 0.13 K/mm3 (0.84-5.20); LYMPHOCYTES PERCENT MAN 14 % (21-46); MONOCYTES ABSOLUTE MAN 0.11 K/mm3 (0.16-1.47); MONOCYTES PERCENT MAN 12 % (4-13); NEUTROPHILS ABSOLUTE MAN 0.69 K/mm3 (1.96-9.15); SEG NEUTROPHILS PERCENT MAN 74 % (41-73); TOTAL CELLS COUNTED 50
--- NOTE | 2021-01-28 10:22 | NUR ---
Dr. Castro return call at this time , notified of critical value, WBC 0.94 and Platlets 31.
--- NOTE | 2021-01-28 18:15 | NUR ---
SHIFT SUMMARY: PATIENT ALERT AND ORIENTED TODAY, NO NOTED CONFUSION, PLEASANT AFFECT. DID TAKE NAP TODAY. APPETITE GOOD. ATE 1/2 [employer] FOR LUNCH AND ALL OF HIS CUSTARD. TONIGHT WORKING ON DINNER. IN TO SEE PT. THIS AFTERNOON. K-PHOS INFUSED. PATIENT WITH NO COMPLAINT. AMBULATES TO BATHROOM WITH STAND BY ASSIST.
[2021-01-29 04:08] LABS: Hematocrit 22.8 % (37.0-53.0); Hemoglobin 7.3 g/dL (13.5-17.5); Mean Corpuscular Volume 103 fL (80-100); Mean Platelet Volume 10.3 fL (9.1-12.4); RDW Coefficient Variation 18.4 % (11.7-14.2); Red Blood Cell Count 2.21 M/mm3 (4.30-5.90)
[2021-01-29 04:14] LABS: Platelet Count 30 K/mm3 (150-400); White Blood Cell Count 0.96 K/mm3 (4.00-11.30)
[2021-01-29 05:42] LABS: BAND PERCENT MAN 6 % (0-8); BASOPHILS PERCENT MAN 0 % (0-2); EOSINOPHILS PERCENT MAN 0 % (0-6); LYMPHOCYTES ABSOLUTE MAN 0.09 K/mm3 (0.84-5.20); LYMPHOCYTES PERCENT MAN 10 % (21-46); MONOCYTES ABSOLUTE MAN 0.19 K/mm3 (0.16-1.47); MONOCYTES PERCENT MAN 20 % (4-13); NEUTROPHILS ABSOLUTE MAN 0.67 K/mm3 (1.96-9.15); SEG NEUTROPHILS PERCENT MAN 64 % (41-73); TOTAL CELLS COUNTED 50
--- NOTE | 2021-01-29 06:20 | NUR ---
ALERT TO SELF. MEDICATED WITH ULTRAM DUE TO LEFT HIP PAIN WHEN REPOSITIONING PATIENT, EFFECTIVE RELIEF. TYLENOL 650MG GIVEN DUE TO C/O HEADACHE, EFFECTIVE RELIEF. INCONTINENT THROUGH NIGHT, BRIEF IN PLACE. REPOSITIONED FOR COMFORT, AND TO OFFLOAD, SAFETY MAINTAINED, CALL RENNER IN REACH.
--- NOTE | 2021-01-29 06:26 | NUR ---
ALERT ABLE TO VERBALIZE NEEDS. TELE: S/R 1ST DEGREE BLOCK. INTERMITTENT SLEEP THROUGH NIGHT. 1 ASSIST WITH WALKER TO COMMODE. VOIDING WITHOUT DIFFICULTIES. SAFETY MANINTAINED, CALL RENNER IN REACH.
--- NOTE | 2021-01-29 18:03 | NUR ---
PT. ALERT AND ORIENTED X 4. PLEASANT AFFECT. DENIES PAIN OR NAUSEA. APPETITE GOOD TONIGHT AT DINNER, SON IN TO VISIT. SBA TO BR AND NOTED PT. UNSTEADY, WEAK BUT CAN AMBULATE. PATIENT UP IN CHAIR TODAY FOR HOURS, TOLERATE WELL. STATES " THE DOCTOR TOLD ME TO GET OUT OF BED AND SIT UP FOR A WHILE SO I AM"
--- NOTE | 2021-01-29 23:27 | NUR ---
+ BLOOD CULTURES AT 2029 DR. ESPARZA COVERING DOCTOR MADE AWARE. NO OTHER ORDERS RECIEVED AT THIS TIME.
[2021-01-30 05:48] LABS: Hematocrit 24.1 % (37.0-53.0); Hemoglobin 7.7 g/dL (13.5-17.5); Mean Corpuscular Volume 103 fL (80-100); Mean Platelet Volume 12.1 fL (9.1-12.4); RDW Coefficient Variation 18.1 % (11.7-14.2); RDW Standard Deviation 68.3 fL (35.1-46.3); Red Blood Cell Count 2.33 M/mm3 (4.30-5.90)
[2021-01-30 05:59] LABS: BASOPHILS PERCENT AUTO 0 % (0-2); EOSINOPHILS PERCENT AUTO 0 % (0-6); IMMATURE GRAN ABSOLUTE AUTO 0.03 K/mm3 (0.00-0.10); IMMATURE GRAN PERCENT AUTO 4 % (0-1); LYMPHOCYTES ABSOLUTE AUTO 0.08 K/mm3 (0.84-5.20); LYMPHOCYTES PERCENT AUTO 11 % (21-46); MONOCYTES ABSOLUTE AUTO 0.24 K/mm3 (0.16-1.47); MONOCYTES PERCENT AUTO 33 % (4-13); NEUTROPHILS ABSOLUTE AUTO 0.38 K/mm3 (1.96-9.15); NEUTROPHILS PERCENT AUTO 52 % (41-73); Platelet Count 29 K/mm3 (150-400); White Blood Cell Count 0.73 K/mm3 (4.00-11.30)
[2021-01-30 06:05] LABS: Albumin, Blood 2.5 g/dL (3.4-5.0); Anion Gap 6 mmol/L (6-16); Blood Urea Nitrogen 23 mg/dL (8-24); Bun/Creatinine Ratio 17.4 (12.0-20.0); CO2, Blood 24 mmol/L (21-32); Chloride, Blood 113 mmol/L (98-108); Creatinine, Blood 1.32 mg/dL (0.60-1.20); Glomerular Filtration Rate 52 (60-); Glucose, Blood 84 mg/dL (70-99); Phosphorus, Blood 2.8 mg/dL (2.5-4.9); Potassium, Blood 3.8 mmol/L (3.5-5.5); Sodium, Blood 143 mmol/L (136-145)
--- NOTE | 2021-01-30 06:29 | NUR ---
Critical WBC/Platelets. See labs. Covering Dr. Espinosa made aware. No orders were recieved at this time. Will pass onto next RN.
--- NOTE | 2021-01-30 16:29 | NUR ---
Pt. was in bed and alert. Son of pt. was also in the room. Pt. demonstrated some mild unsettledness of his diagnosis. Pt. sturggled to form words, but worked to maintain conversation flow. At pts. request scripture was read. Conversation normalized his patient expereince. Issues of irene were explored. Pastoral Prayer was given. Pt. demonstrated encouragement and gratittude for the visit.
--- NOTE | 2021-01-30 18:36 | NUR ---
SUMMARY: NO ACUTE CHANGE TODAY. VSS, A/O. TELE DC'D. AFIBRILE TODAY. PT USING CALL LIGHT AND AMBULATES WITH SBA AND FWW TO BATHROOM. PT HAS DENIED PAIN. ANTIBIOTICS GIVEN. PLAN IS FOR CONTINUED MONITORING AND IV/PO ANTIBIOTICS. WILL REPORT TO MARCOS ADAN.
[2021-01-31 05:02] LABS: Hematocrit 23.4 % (37.0-53.0); Hemoglobin 7.4 g/dL (13.5-17.5); Mean Corpuscular HGB 32.9 pg (26.0-34.0); Mean Corpuscular HGB Conc 31.6 g/dL (31.5-36.5); Mean Corpuscular Volume 104 fL (80-100); Mean Platelet Volume 11.9 fL (9.1-12.4); RDW Coefficient Variation 18.2 % (11.7-14.2); RDW Standard Deviation 67.9 fL (35.1-46.3); Red Blood Cell Count 2.25 M/mm3 (4.30-5.90)
[2021-01-31 05:38] LABS: Platelet Count 27 K/mm3 (150-400)
--- NOTE | 2021-01-31 06:29 | NUR ---
CRITICAL LAB VALUES Critical WBC/platelets this am. Dr. Espinosa covering and made aware. No orders were recieved at this time. Will pass onto day RN.
[2021-01-31 08:13] LABS: BAND PERCENT MAN 4 % (0-8); BASOPHILS PERCENT MAN 0 % (0-2); EOSINOPHILS ABSOLUTE MAN 0.02 K/mm3 (0.00-0.68); EOSINOPHILS PERCENT MAN 4 % (0-6); LYMPHOCYTES ABSOLUTE MAN 0.16 K/mm3 (0.84-5.20); LYMPHOCYTES PERCENT MAN 28 % (21-46); METAMYELOCYTE ABSOLUTE MAN 0.04 K/mm3 (0.00-0.00); METAMYELOCYTE PERCENT MAN 8 % (0-0); MONOCYTES ABSOLUTE MAN 0.07 K/mm3 (0.16-1.47); MONOCYTES PERCENT MAN 12 % (4-13); NEUTROPHILS ABSOLUTE MAN 0.28 K/mm3 (1.96-9.15); SEG NEUTROPHILS PERCENT MAN 44 % (41-73); TOTAL CELLS COUNTED 25
--- NOTE | 2021-01-31 15:36 | NUR ---
A spiritual care visit. Pt. was alert and having vitals checked. Pt. spouse was present. Pt. seemed less responsive and more lethargic today. Observed spirital distress regarding unresolved diagnosis, AND family holiday plans that have been cancelled. Provided a calming presence and communicated privately with spouse. Patient displayed agreement with the changes affected by his hosptialization. The Pt. support system is reconciled to the pts. condition, and is empowered to make the most of this holiday with pt. Prayed with Pt.
--- NOTE | 2021-01-31 18:00 | NUR ---
SHIFT SUMMARY: PT. AOX3, DENIES ANY PAIN ALL DAY, AMBULATES TO THE BATHROOM USING A WALKER ON GUARD ASSIST X1, HAD A FULL SHOWER TODAY, RIGHT ARM IV ACCESS INFUSING WELL, SEEN BY DR. NAIK THIS MORNING, NYSTATIN CREAM ORDERED RELATED TO PENILE REDNESS & IRRITATION, PT. VERBALIZED OF FEELING BETTER AFTER APPLICATION, ALLEVYN APPLIED TO COCCYX AREA, SPOUSE CAME THIS AFTERNOON, NO OTHER NEW UNUSUALITIES NOTED.
--- NOTE | 2021-02-01 03:44 | NUR ---
SHIFT SUMMARY NO ACUTE CHANGES OVERNIGHT. PT HAS BEEN PLEASANT, ALERT AND ORIENTED BUT HARD OF HEARING. VSS. AFEBRILE. PT DENIES CHEST PAIN AND SOB. REPORTS FEELING WEAK. AMBULATING WITH FWW AND GB. AMBULATES IN THE BATHROOM AOX3. TOLERATING PO INTAKE. PT DENIES N/V.COCCYX AREA HAD SOME REDNESS MEPLEX IN PLACED. REDNESS AND IRRITATION ON THEIR HANDS VSS. CALL LIGHT WITHIN REACH. WILL PROVIDE REPORT TO ONCOMING NUSRE. CALL LIGHT WITHIN REACH. WILL PROVIDE REPORT TO ONCOMING NURSE
[2021-02-01 04:47] LABS: Hematocrit 25.7 % (37.0-53.0); Hemoglobin 8.3 g/dL (13.5-17.5); Mean Corpuscular HGB 33.2 pg (26.0-34.0); Mean Corpuscular HGB Conc 32.3 g/dL (31.5-36.5); Mean Corpuscular Volume 103 fL (80-100); Mean Platelet Volume 12.2 fL (9.1-12.4); RDW Coefficient Variation 18.2 % (11.7-14.2); RDW Standard Deviation 67.9 fL (35.1-46.3); White Blood Cell Count 2.31 K/mm3 (4.00-11.30)
[2021-02-01 05:46] LABS: Platelet Count 26 K/mm3 (150-400)
[2021-02-01 06:18] LABS: BAND PERCENT MAN 3 % (0-8); BASOPHILS PERCENT MAN 0 % (0-2); EOSINOPHILS ABSOLUTE MAN 0.04 K/mm3 (0.00-0.68); EOSINOPHILS PERCENT MAN 2 % (0-6); LYMPHOCYTES ABSOLUTE MAN 0.04 K/mm3 (0.84-5.20); LYMPHOCYTES PERCENT MAN 2 % (21-46); MONOCYTES ABSOLUTE MAN 0.06 K/mm3 (0.16-1.47); MONOCYTES PERCENT MAN 3 % (4-13); NEUTROPHILS ABSOLUTE MAN 2.14 K/mm3 (1.96-9.15); SEG NEUTROPHILS PERCENT MAN 90 % (41-73); TOTAL CELLS COUNTED 100
--- NOTE | 2021-02-01 16:01 | NUR ---
Spiritual Care visit. Pt. was being helped into bed, and was alert. Pt. eldest son was present. Pt. gave good report about CT scan he received the previous day. Pt. showed some distress regarding a personal theological understanding. Explored issues of irene and belief. Pt. demonstrated comprehesion and improved hope. [facility]ps was called to respond to a trauma situation in ED. Prayed quickly with patient and son of patient.
--- NOTE | 2021-02-01 17:31 | NUR ---
SHIFT SUMMARY: PATIENT AOX3, IV ACCESS TO RIGHT LOWER ARM WAS LEAKING THIS MORNING, NEW IV ACCESS PLACED TO RIGHT UPPER ARM,INFUSING WELL. PT. AMBULATES TO THE BATHROOM & TRANSFERS TO RECLINER USING A WALKER ON GUARD ASSIST X1. RECEIVED ALL HIS SCHEDULED MEDS , NASAL SWAB FOR MRSA DONE. SPOUSE CAME TO VISIT PT. & BROUGHT SOME FOOD WHICH PT. ATE 100 % PLUS THE DINNER SERVED FROM THE [facility]. NO NEW UNUSUALITIES NOTED. GROIN & PENILE AREA IS GETTING BETTER IN APPEARANCE & PER PT'S REPORT.EWILL CONTINUE TO MONITOR. DENIES PAIN THROUGHOUT THE DAY.
--- NOTE | 2021-02-02 06:18 | NUR ---
SHIFT SUMMARY. PT SLEPT GOOD OVERNIGHT. NO ACUTE CHANGES. PT DENIES PAIN. AMBULATES IN THE BATHROOM TO VOID WITH SBA, FWW AND GB. TOLERATING PO INTAKE DENIES NAUSEA AND VOMITING. VSS. SOME REDNESS ON PRIVATE AREA AND BUTTOM, NYSTATIN ADMINSTERED. ABX ADMINISTERED LAST NIGHT. CALL LIGHT WITHIN REACH. WILL PROVIDE REPORT TO ONCOMING NURSE.
[2021-02-02 09:08] LABS: Hematocrit 27.1 % (37.0-53.0); Hemoglobin 8.7 g/dL (13.5-17.5); Mean Corpuscular HGB 33.5 pg (26.0-34.0); Mean Corpuscular HGB Conc 32.1 g/dL (31.5-36.5); Mean Corpuscular Volume 104 fL (80-100); Mean Platelet Volume 11.3 fL (9.1-12.4); RDW Coefficient Variation 18.7 % (11.7-14.2); RDW Standard Deviation 70.7 fL (35.1-46.3); White Blood Cell Count 2.33 K/mm3 (4.00-11.30)
[2021-02-02 09:13] LABS: Platelet Count 26 K/mm3 (150-400)
[2021-02-02 09:24] LABS: Vancomycin, Trough 13.2 ug/mL (5.0-10.0)
[2021-02-02 09:56] LABS: BAND PERCENT MAN 5 % (0-8); BASOPHILS PERCENT MAN 0 % (0-2); EOSINOPHILS PERCENT MAN 0 % (0-6); LYMPHOCYTES ABSOLUTE MAN 0.13 K/mm3 (0.84-5.20); LYMPHOCYTES PERCENT MAN 6 % (21-46); MONOCYTES ABSOLUTE MAN 0.13 K/mm3 (0.16-1.47); MONOCYTES PERCENT MAN 6 % (4-13); NEUTROPHILS ABSOLUTE MAN 2.05 K/mm3 (1.96-9.15); SEG NEUTROPHILS PERCENT MAN 83 % (41-73); TOTAL CELLS COUNTED 100
--- NOTE | 2021-02-02 11:44 | NUR ---
Spiritual Care visit. Pt. was alert and sitting up in a chair. Pt. seemed encouraged by the previous days diagnosis. Pt. had a difficult time expressing words. Provided empathetic listening, and built upon existing theraputic rapport. Pt. displayed evidence of imporved hope and receptiveity of the prospect of recieveing a monitor that he can wear home. Pt. verbalized gratittude for the visit. Pastoral prayer was received.
--- NOTE | 2021-02-03 04:25 | NUR ---
PT IS ALERT AND ORIENTED X4 AND FORGETFUL. HARD OF HEARING. DENIES PAIN. UP WITH SBA.
[2021-02-03 04:30] LABS: Hematocrit 26.1 % (37.0-53.0); Hemoglobin 8.3 g/dL (13.5-17.5); Mean Corpuscular HGB 32.8 pg (26.0-34.0); Mean Corpuscular HGB Conc 31.8 g/dL (31.5-36.5); Mean Corpuscular Volume 103 fL (80-100); Mean Platelet Volume 10.1 fL (9.1-12.4); RDW Coefficient Variation 18.6 % (11.7-14.2); Red Blood Cell Count 2.53 M/mm3 (4.30-5.90); White Blood Cell Count 2.58 K/mm3 (4.00-11.30)
[2021-02-03 04:38] LABS: Platelet Count 24 K/mm3 (150-400)
[2021-02-03 04:56] LABS: BAND PERCENT MAN 7 % (0-8); BASOPHILS PERCENT MAN 0 % (0-2); EOSINOPHILS PERCENT MAN 0 % (0-6); LYMPHOCYTES ABSOLUTE MAN 0.02 K/mm3 (0.84-5.20); LYMPHOCYTES PERCENT MAN 1 % (21-46); METAMYELOCYTE ABSOLUTE MAN 0.02 K/mm3 (0.00-0.00); METAMYELOCYTE PERCENT MAN 1 % (0-0); MONOCYTES ABSOLUTE MAN 0.36 K/mm3 (0.16-1.47); MONOCYTES PERCENT MAN 14 % (4-13); NEUTROPHILS ABSOLUTE MAN 2.16 K/mm3 (1.96-9.15); SEG NEUTROPHILS PERCENT MAN 77 % (41-73); TOTAL CELLS COUNTED 100
--- NOTE | 2021-02-03 15:43 | NUR ---
SHIFT SUMMARY PT CONTINUES TO BE AFEBRILE T/O SHIFT. SBA TO BATHROOM USING FWW, INCREASED STRENGTH PER PT, DOES NOT APPEAR UNSTEADY ON FEET. PLAN IS TO CONTINUE WITH PO AND IV ABX AND POSSIBLY DC HOME TOMORROW. PT HAS HAD 3 LOOSE BROWN STOOLS THIS SHIFT, NOTIFIED. WILL COLLECT AND SEND STOOL SAMPLE AND START PT ON BANANA FLAKES. AT BEDSIDE THIS AFTERNOON.
[2021-02-04 04:47] LABS: Hematocrit 25.8 % (37.0-53.0); Hemoglobin 8.3 g/dL (13.5-17.5); Mean Corpuscular HGB 33.5 pg (26.0-34.0); Mean Corpuscular HGB Conc 32.2 g/dL (31.5-36.5); Mean Corpuscular Volume 104 fL (80-100); Mean Platelet Volume 12.3 fL (9.1-12.4); NRBC ABSOLUTE 0.02 K/mm3 (0.00-0.02); NRBC Auto 1.2 /100 WBC (0.0-0.2); RDW Coefficient Variation 18.6 % (11.7-14.2); RDW Standard Deviation 70.5 fL (35.1-46.3); Red Blood Cell Count 2.48 M/mm3 (4.30-5.90); White Blood Cell Count 1.65 K/mm3 (4.00-11.30)
[2021-02-04 04:57] LABS: Platelet Count 21 K/mm3 (150-400)
[2021-02-04 05:59] LABS: BAND PERCENT MAN 6 % (0-8); BASOPHILS PERCENT MAN 0 % (0-2); EOSINOPHILS PERCENT MAN 0 % (0-6); LYMPHOCYTES ABSOLUTE MAN 0.03 K/mm3 (0.84-5.20); LYMPHOCYTES PERCENT MAN 2 % (21-46); MONOCYTES ABSOLUTE MAN 0.36 K/mm3 (0.16-1.47); MONOCYTES PERCENT MAN 22 % (4-13); MYELOCYTE ABSOLUTE MAN 0.06 K/mm3 (0.00-0.00); MYELOCYTE PERCENT MAN 4 % (0-0); NEUTROPHILS ABSOLUTE MAN 1.18 K/mm3 (1.96-9.15); SEG NEUTROPHILS PERCENT MAN 66 % (41-73); TOTAL CELLS COUNTED 50
--- NOTE | 2021-02-04 06:12 | NUR ---
CRITICAL PLT Critical plt. See lab results. Dr. Meyers made aware. No orders were recieved at this time. Will pass onto day RN.
--- NOTE | 2021-02-04 14:20 | NUR ---
DISCHARGE PT IS VERY HAPPY TO BE GOING HOME ON [place]. [facility] CALLED & ARRANGED. SON IS VERY ATTENTIVE & HELPFUL. IS EMOTIONAL BUT HAPPY TO BE TAKING HIM HOME. /SON REPORT HAVING THE EQUIPTMENT & ABILITY TO CARE FOR HIM. ESCORTED OUT VIA W/C.
== END 2021-02-04 14:27 | disposition home or self-care (01) | DRG 808 ==
LOC: ER 14:02 → ERHOLD 23:58 → SURS 01-26 03:54
PROVIDERS: Hospitalist; Internal Medicine; Pharmacist; Student in an Organized Health Care Education/Training Program; ADMIT Family Medicine
DX: D70.9 Neutropenia, unspecified (principal); A41.9 Sepsis, unspecified organism; R65.20 Severe sepsis without septic shock; C83.30 Diffuse large B-cell lymphoma, unspecified site; C90.00 Multiple myeloma not having achieved remission; E27.40 Unspecified adrenocortical insufficiency; R50.81 Fever presenting with conditions classified elsewhere; E03.9 Hypothyroidism, unspecified; N40.0 Benign prostatic hyperplasia without lower urinary tract symptoms; Z66 Do not resuscitate; K52.9 Noninfective gastroenteritis and colitis, unspecified; D61.810 Antineoplastic chemotherapy induced pancytopenia; Z20.822 Contact with and (suspected) exposure to COVID-19; G47.33 Obstructive sleep apnea (adult) (pediatric); H40.9 Unspecified glaucoma; H26.9 Unspecified cataract; J44.9 Chronic obstructive pulmonary disease, unspecified; T45.1X5A Adverse effect of antineoplastic and immunosuppressive drugs, initial encounter; Z88.8 Allergy status to other drugs, medicaments and biological substances; Z85.46 Personal history of malignant neoplasm of prostate; Z95.828 Presence of other vascular implants and grafts; Z98.890 Other specified postprocedural states; Z79.899 Other long term (current) drug therapy; Z88.1 Allergy status to other antibiotic agents; Z88.2 Allergy status to sulfonamides
CPT/HCPCS: 0241U; 36415; 51798; 70450; 71046; 71260; 74177; 80047; 80053; 80069; 80202; 81001; 83605; 83735; 84145; 85007; 85014; 85025; 85027; 87040; 87086; 87493; 93005; 93010; 93971; 96365; 97116; 97162; 97165; 97535; 99285-25; A9270; G0378; J0692; J0696; J1956; J2543; J3370; J7030; J7040; J7050; J7060; J7120; Q5110; Q9967